=== PATIENT | male | born 1980 | race Caucasian/White ===

== ENCOUNTER 2017-08-28 12:44 | Emergency (ER) | payer SELFPAY ==
[2017-08-28 13:09] VITALS: BP 127/81
--- NOTE | 2017-08-28 13:18 | UC ---
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-hurts with certain movement relief with different positions - History of Current Complaint Chief Complaint: UCLowerExtremity Stated Complaint: LEFT LEG PAIN Time Seen by Provider: 08/28/17 13:15 Hx Obtained From: Patient Onset/Duration: Sudden Onset, Lasting Days - 6 Severity Initially: Mild Severity Currently: Mild Pain Intensity: 4 Pain Scale Used: 0-10 Numeric Aggravating Factor(s): Standing Alleviating Factor(s): Rest, Other - positions and stretching Able to Bear Weight: Yes - Allergies/Home Medications Allergies/Adverse Reactions: Allergies Allergy/AdvReac Type Severity Reaction Status Date / Time No Known Allergies Allergy Verified 08/28/17 13:04 PMH/Surg Hx/FS Hx/Imm Hx Previously Healthy: Yes - Surgical History Surgical History: Yes Surgery Procedure, Year, and Place: adenoidectomy, tonsils - Family History Known Family History: Positive: None, Other - Social History Occupation: Employed Full-time Lives: With Family Alcohol Use: None Substance Use Type: None Smoking Status (MU): Never Smoked Tobacco Household Exposure Type: Cigarettes - Immunization History Most Recent Influenza Vaccination: Not the 2016/2017 Season Review of Systems Constitutional: Negative Skin: Negative Eyes: Negative ENT: Negative Respiratory: Negative Cardiovascular: Negative Gastrointestinal: Negative Genitourinary: Negative Motor: Negative Neurovascular: Negative Musculoskeletal: Arthralgia - left upper leg, Myalgia - left upper leg Neurological: Negative Psychological: Negative Is Patient Immunocompromised?: No All Other Systems Reviewed And Are Negative: Yes Physical Exam Triage Information Reviewed: Yes Appearance: Well-Appearing, No Pain Distress, Well-Nourished Vital Signs: Initial Vital Signs Temp 98.5 F 08/28/17 12:57 Pulse 72 08/28/17 12:57 Resp 16 08/28/17 12:57 BP 127/81 08/28/17 12:57 Pulse Ox 100 08/28/17 12:57 Vital Signs Reviewed: Yes Eye Exam: Normal Eyes: Positive: Conjunctiva Clear ENT Exam: Normal ENT: Positive: Normal ENT inspection, Hearing grossly normal. Negative: Nasal congestion, Nasal drainage, Trismus, Muffled/hoarse voice Dental Exam: Normal Neck exam: Normal Neck: Positive: Supple, Nontender Respiratory Exam: Normal Respiratory: Positive: Chest non-tender, No respiratory distress, No accessory muscle use Cardiovascular Exam: Normal Cardiovascular: Positive: RRR, Pulses Normal, Brisk Capillary Refill Musculoskeletal Exam: Normal Musculoskeletal: Positive: Strength Intact, ROM Intact, No Edema Neurological Exam: Normal Neurological: Positive: Alert Psychological Exam: Normal Skin Exam: Normal Lower Extremity Course/Dx - Course Course Of Treatment: nsaids, heat muscle relaxor (refused time off from work), follow with pcp - Differential Dx/Diagnosis Differential Diagnosis/HQI/PQRI: Contusion, Fracture (Closed), Phlebitis, Puncture Wound, Sciatica, Sprain, Strain Provider Diagnoses: Left ham string strain Discharge - Discharge Plan Condition: Stable Disposition: HOME Prescriptions: Cyclobenzaprine TAB* [Flexeril 10 MG TAB*] 10 mg PO TID PRN #15 tab PRN Reason: muscle pain Naproxen [Naproxen 500 mg] 500 mg PO Q12H PRN #30 tab PRN Reason: leg pain Patient Education Materials: Acetaminophen (By mouth), Muscle Strain (ED), Core Strengthening Exercises (GEN) Referrals: [facility] [Provider Group] - [address] [facility] [Outside] - 5 Days
== END 2017-08-28 13:41 | disposition home or self-care (01) ==
LOC: UCCORT 12:44
DX: S76.812A Strain of other specified muscles, fascia and tendons at thigh level, left thigh, initial encounter (principal); X50.3XXA Overexertion from repetitive movements, initial encounter; Y93.9 Activity, unspecified; Y92.9 Unspecified place or not applicable; Y99.9 Unspecified external cause status
CPT/HCPCS: 99212; G0463

== ENCOUNTER 2018-02-21 13:03 | Emergency (ER) | payer SELFPAY ==
[2018-02-21] MEDS ORDERED: Ibuprofen TAB* 600 MG PO ONE (14:11)
[2018-02-21] MEDS ORDERED: Tetan/Diph/Pertus SYR(Tdap)* 0.5 ML SYR(BOOSTRIX) use SYR IM ONE (14:11)
[2018-02-21 14:16] VITALS: BP 143/94
--- NOTE | 2018-02-21 14:17 | UC ---
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 the bite did not tear his jeans. last tetanus is not known. occured [employer]OCK [employer]. denies any other injury. - History of Current Complaint Stated Complaint: LEFT LEG DOG BITE (WC) Time Seen by Provider: 02/21/18 14:03 Hx Obtained From: Patient Onset/Duration: Sudden Onset Type of Bite: Animal - dog Has Animal Been Immunized?: Unknown Character: Abrasion/Laceration Aggravating Factor(s): Nothing Alleviating Factor(s): Nothing Associated Signs And Symptoms: Positive: Swelling Hx of Bite: Unprovoked Animal Available for Observation: Yes - Risk Factors Infection/Sepsis Risk Factors: Negative - Allergies/Home Medications Allergies/Adverse Reactions: Allergies Allergy/AdvReac Type Severity Reaction Status Date / Time No Known Allergies Allergy Verified 02/21/18 14:12 Home Medications: Home Medications NK [No Home Medications Reported] 02/21/18 [History Confirmed 02/21/18] PMH/Surg Hx/FS Hx/Imm Hx Previously Healthy: Yes - Surgical History Surgical History: Yes Surgery Procedure, Year, and Place: adenoidectomy, tonsils - Family History Known Family History: Positive: None, Other - Social History Occupation: Employed Full-time Alcohol Use: None Substance Use Type: None Smoking Status (MU): Never Smoked Tobacco Household Exposure Type: Cigarettes - Immunization History Most Recent Influenza Vaccination: Not the 2016/2017 Season Review of Systems Constitutional: Negative Skin: Negative Eyes: Negative ENT: Negative Respiratory: Negative Cardiovascular: Negative Gastrointestinal: Negative Genitourinary: Negative Motor: Negative Neurovascular: Negative Musculoskeletal: Negative Neurological: Negative Psychological: Negative Is Patient Immunocompromised?: No All Other Systems Reviewed And Are Negative: Yes Physical Exam Triage Information Reviewed: Yes Appearance: Well-Appearing Vital Signs Reviewed: Yes Eye Exam: Normal ENT: Positive: Normal ENT inspection Neck: Positive: Supple, Nontender, No Lymphadenopathy Respiratory: Positive: Lungs clear, Normal breath sounds Cardiovascular: Positive: RRR, No Murmur Abdomen Description: Positive: Nontender, No Organomegaly, Soft Bowel Sounds: Positive: Present Musculoskeletal: Positive: ROM Intact, Other: - L calf has abrasion with mild swelling and bruising. s/v/m is intact. Over lying jeans are intact Neurological: Positive: Alert Psychological: Positive: Age Appropriate Behavior Skin Exam: Normal Bite Injury Course/Dx - Course Course Of Treatment: no direct contact between pt skin and animal mouth plus no pw - area is c/w abrasion from bite thus po antibiotic not indicated. will update tetanus. pt states filed animal bite papers at registration. bite from a family dog and rn documentation specialist is known. no hx htn and BP i think is related to this visit - Differential Dx/Diagnosis Provider Diagnoses: Dog bite L calf Discharge - Sign-Out/Discharge Documenting (check all that apply): Discharge - Discharge Plan Condition: Stable Disposition: HOME Patient Education Materials: Animal Bite (ED) Referrals: Radha Malhotra MD [Medical Doctor] - If Needed - Billing Disposition and Condition Condition: STABLE Disposition: HOME
== END 2018-02-21 14:55 | disposition home or self-care (01) ==
LOC: UCCORT 13:03
DX: S81.852A Open bite, left lower leg, initial encounter (principal); W54.0XXA Bitten by dog, initial encounter; Y93.89 Activity, other specified; Y92.410 Unspecified street and highway as the place of occurrence of the external cause; Y99.0 Civilian activity done for income or pay
CPT/HCPCS: 90471; 90715; 99212; A9270-GY; G0463

== ENCOUNTER 2019-06-26 14:32 | Emergency (ER) | payer OTHER ==
[2019-06-26 15:05] VITALS: BP 138/96
--- NOTE | 2019-06-26 15:46 | UC ---
Lower Extremity/Ankle HPI - HPI Summary HPI Summary: 39 year old male with no pMH present with right knee pain after fall on Wednesday. Patient fell onto gravel, ho [place], LOC/ Head trauma. Patient was ambulatory at scene, however increase pain since with difficulty walking this AM. Improved with Naproxen. + fever of 100 on naproxen currently. + warmth. - History of Current Complaint Chief Complaint: UCLowerExtremity Stated Complaint: L KNEE INJ Time Seen by Provider: 06/26/19 15:19 Hx Obtained From: Patient, Family/In Home Tutor - sister, friend Onset/Duration: Sudden Onset, Lasting Days Severity Initially: Moderate Severity Currently: Severe Pain Intensity: 10 Pain Scale Used: 0-10 Numeric Aggravating Factor(s): Standing, Ambulation Alleviating Factor(s): Rest Able to Bear Weight: Yes - painful - Allergies/Home Medications Allergies/Adverse Reactions: Allergies Allergy/AdvReac Type Severity Reaction Status Date / Time No Known Allergies Allergy Verified 06/26/19 15:05 PMH/Surg Hx/FS Hx/Imm Hx Previously Healthy: Yes - Surgical History Surgical History: Yes Surgery Procedure, Year, and Place: adenoidectomy, tonsils - Family History Known Family History: Positive: None, Other, Non-Contributory - Social History Alcohol Use: None Substance Use Type: None Smoking Status (MU): Never Smoked Tobacco Household Exposure Type: Cigarettes - Immunization History Most Recent Influenza Vaccination: Not the 2016/2017 Season Most Recent Tetanus Shot: Unknown Review of Systems All Other Systems Reviewed And Are Negative: Yes Constitutional: Positive: Fever, Chills Musculoskeletal: Positive: Arthralgia, Decreased ROM, Edema, Myalgia Neurological: Negative: Headache Is Patient Immunocompromised?: No Physical Exam Triage Information Reviewed: Yes Appearance: No Pain Distress, Well-Nourished, Ill-Appearing - minimal Vital Signs: Initial Vital Signs Temp 100.1 F 06/26/19 15:02 Pulse 90 06/26/19 15:02 Resp 16 06/26/19 15:02 BP 138/96 06/26/19 15:02 Pulse Ox 98 06/26/19 15:02 Vital Signs Reviewed: Yes Eyes: Positive: Conjunctiva Clear Musculoskeletal: Positive: Other: - rythema around lacrations laterally on left knee with light erythema extending to lower 1/2 of knee, + effusion, mild to moderate, with diffuse warmth. ROM 0-130 without difficulty, + ambulatory with limp, + painful per patient. neg homans, neg achillies, DF/PF = b/l. no pain with movement great toe passively. + TTP b/l joint lines. neg patella grind. Neurological Exam: Normal Neurological: Positive: Alert - SITLT distal to knee Psychological Exam: Normal Skin: Positive: Rashes - erythema around lacrations laterally on left knee with light erythema extending to lower 1/2 of knee, + effusion, mild to moderate, with diffuse warmth. ROM 0-130 without difficulty, + ambulatory with limp, + painful per patient. neg homans, neg achillies, DF/PF = b/l. no pain with movement great toe passively. + TTP b/l joint lines. neg patella grind. Lower Extremity Course/Dx - Course Course Of Treatment: Probable septic joint, sent to ER for further evaluation treatment. Offerred ambo, will be taken in friends car as patient did not want possible cost of ambo. - Differential Dx/Diagnosis Differential Diagnosis/HQI/PQRI: Cellulitis, Compartment Syndrome, Fracture ( Closed), Fracture (Open), Sprain, Strain, Tendonitis, Tenosynovitis Provider Diagnosis: Knee effusion, left Discharge - Sign-Out/Discharge Documenting (check all that apply): Patient Departure All imaging exams completed and their final reports reviewed: Yes - Discharge Plan Condition: Fair Disposition: HOME-RECOMMEND TO ED Patient Education Materials: Swollen Knee Joint (ED) Referrals: No Primary Care Phys,NOPCP [Primary Care Provider] - Additional Instructions: Potential for septic knee- Please go to ER for further evaluation and treatment - Billing Disposition and Condition Condition: FAIR Disposition: Home-Recommend to ED - Attestation Statements Provider Attestation: I was available for consult. This patient was seen by the DEWAYNE. The patient was not presented to, seen by, or examined by me. -Sb
== END 2019-06-26 15:45 | disposition home health service (06) ==
LOC: UCEAST 14:32
DX: M25.462 Effusion, left knee (principal)
CPT/HCPCS: 99212; G0463

== ENCOUNTER 2019-06-26 16:02 | Emergency (ER) | payer OTHER ==
[2019-06-26 17:05] LABS: ABS Eosinophils 0.3 10^3/ul (0-0.6); ABS Lymphocytes 1.6 10^3/ul (1.0-4.8); ABS Monocytes 0.5 10^3/ul (0-0.8); ABS Neutrophils 6.8 10^3/ul (1.5-7.7); Eosinophil % 3.4 %; Hematocrit 44 % (42-52); Hemoglobin 15.6 g/dL (14.0-18.0); Mean Corpuscular HGB Conc 36 g/dL (31-36); Mean Corpuscular Hemoglobin 30 pg (27-31); Mean Corpuscular Volume 86 fL (80-94); Mean Platelet Volume 8.2 fL (7.4-10.4); Platelet Count 204 10^3/uL (150-450); Red Blood Count 5.13 10^6 /uL (4.18-5.48); Red Cell Distribution Width 13 % (10-15); White Blood Count 9.2 10^3/uL (3.5-10.8)
[2019-06-26 17:27] LABS: Albumin 4.8 g/dL (3.2-5.2); Albumin/Globulin Ratio 1.5 (1-3); BUN/Creatinine Ratio 13.1 (8-20); C Reactive Protein 10.82 mg/L (<8.01); Calcium 9.8 mg/dL (8.6-10.3); EGFR African American 102.4 (>60); EGFR Non-African American 84.6 (>60); Globulin 3.1 g/dL (2-4); Potassium 3.9 mmol/L (3.5-5.0); Total Protein 7.9 g/dL (6.4-8.9)
--- NOTE | 2019-06-26 19:58 | ED ---
Lower Extremity - HPI Summary HPI Summary: This pt is a 39 Y/O M presenting to [facility] with a CC of a L knee injury sustained while falling on 06/23/19. He states that the pain is rated a 10/10 in severity while ambulating and feels slightly better while laying down. He stated that he fell on gravel and has had a work up for Sepsis from urgent care which was negative. He states that his knee is throbbing, swollen, and has erythema. He denies any fever, N/V/D, CP, cough, headaches, and chills. - History of Current Complaint Chief Complaint: EDExtremityLower Stated Complaint: LT KNEE PAIN PER PT Time Seen by Provider: 06/26/19 19:19 Hx Obtained From: Patient Mechanism Of Injury: Fall From A Standing Position Onset of Pain: Immediate Onset/Duration: Days - 3 Severity Initially: Moderate Severity Currently: Severe Pain Intensity: 10 Pain Scale Used: 0-10 Numeric Timing: Constant Location: Is Discrete @ - L knee Character Of Pain: Throbbing Associated Signs And Symptoms: Positive: Negative - N/V/D, CP, cough, headaches , and chills., Swelling, Redness, Knee Pain, Other - Scabs in his L knee. Negative: Fever Aggravating Factor(s): Standing, Ambulation Alleviating Factor(s): Rest - Allergies/Home Medications Allergies/Adverse Reactions: Allergies Allergy/AdvReac Type Severity Reaction Status Date / Time No Known Allergies Allergy Verified 06/26/19 15:05 PMH/Surg Hx/FS Hx/Imm Hx Previously Healthy: No Endocrine/Hematology History: Denies: Hx Diabetes, Hx Thyroid Disease Cardiovascular History: Denies: Hx Hypertension Respiratory History: Denies: Hx Asthma, Hx Chronic Obstructive Pulmonary Disease (COPD) GI History: Denies: Hx Ulcer - Surgical History Surgery Procedure, Year, and Place: adenoidectomy, tonsils Infectious Disease History: No Infectious Disease History: Denies: Hx Clostridium Difficile, Hx Hepatitis, Hx Human Immunodeficiency Virus (HIV), Hx of Known/Suspected MRSA, Hx Shingles, Hx Tuberculosis, Hx Known/ Suspected VRE, Hx Known/Suspected VRSA, History Other Infectious Disease, Traveled Outside the [place] in Last 30 Days - Family History Known Family History: Positive: None, Other, Non-Contributory - Social History Alcohol Use: None Substance Use Type: Reports: None Smoking Status (MU): Never Smoked Tobacco Review of Systems Negative: Fever, Chills Negative: Chest Pain Negative: Cough Negative: Abdominal Pain, Vomiting, Diarrhea, Nausea Positive: Myalgia - L knee pain Skin: Other - scabs over the L knee, erythema, swelling Negative: Headache All Other Systems Reviewed And Are Negative: Yes Physical Exam - Summary Physical Exam Summary: VITAL SIGNS: Reviewed. GENERAL: Patient is a well-developed and nourished male who is lying comfortable in the stretcher. Patient is not in any acute respiratory distress. HEAD AND FACE: No signs of trauma. No ecchymosis, hematomas or skull depressions. No sinus tenderness. EYES: PERRLA, EOMI x 2, No injected conjunctiva, no nystagmus. EARS: Hearing grossly intact. Ear canals and tympanic membranes are within normal limits. MOUTH: Oropharynx within normal limits. NECK: Supple, trachea is midline, no adenopathy, no JVD, no carotid bruit, no c- spine tenderness, neck with full ROM CHEST: Symmetric, no tenderness at palpation LUNGS: Clear to auscultation bilaterally. No wheezing or crackles. CVS: Regular rate and rhythm, S1 and S2 present, no murmurs or gallops appreciated. ABDOMEN: Soft, non-tender. No signs of distention. No rebound no guarding, and no masses palpated. Bowel sounds are normal. EXTREMITIES: Escher over the L knee with tenderness to palpation, mild swelling , but no erythema. NEURO: Alert and oriented x 3. No acute neurological deficits. Speech is normal and follows commands. SKIN: Dry and warm Triage Information Reviewed: Yes Vital Signs On Initial Exam: Initial Vitals Temp Pulse Resp BP Pulse Ox 100.2 F 91 16 133/90 96 06/26/19 16:03 06/26/19 16:03 06/26/19 16:03 06/26/19 16:03 06/26/19 16:03 Vital Signs Reviewed: Yes Diagnostics - Vital Signs Vital Signs Temp Pulse Resp BP Pulse Ox 06/26/19 19:43 98.0 F 06/26/19 16:03 100.2 F 91 16 133/90 96 - Laboratory Lab Results: Lab Results 06/26/19 06/26/19 06/26/19 Range/Units 16:54 16:54 16:54 WBC 9.2 (3.5-10.8) 10^3/uL RBC 5.13 (4.18-5.48) 10^6 /uL Hgb 15.6 (14.0-18.0) g/dL Hct 44 (42-52) % MCV 86 (80-94) fL MCH 30 (27-31) pg MCHC 36 (31-36) g/dL RDW 13 (10-15) % Plt Count 204 (150-450) 10^3/uL MPV 8.2 (7.4-10.4) fL Neut % (Auto) 73.4 % Lymph % (Auto) 17.0 % [place] % (Auto) 5.8 % Eos % (Auto) 3.4 % Baso % (Auto) 0.4 % Absolute Neuts (auto) 6.8 (1.5-7.7) 10^3/ul Absolute Lymphs (auto) 1.6 (1.0-4.8) 10^3/ul Absolute Monos (auto) 0.5 (0-0.8) 10^3/ul Absolute Eos (auto) 0.3 (0-0.6) 10^3/ul Absolute Basos (auto) 0.0 (0-0.2) 10^3/ul Absolute Nucleated RBC 0.0 10^3/ul Nucleated RBC % 0.0 Sodium 140 (135-145) mmol/L Potassium 3.9 (3.5-5.0) mmol/L Chloride 106 (101-111) mmol/L Carbon Dioxide 26 (22-32) mmol/L Anion Gap 8 (2-11) mmol/L BUN 13 (6-24) mg/dL Creatinine 0.99 (0.67-1.17) mg/dL Est GFR ( Amer) 102.4 (>60) Est GFR (Non-Af Amer) 84.6 (>60) BUN/Creatinine Ratio 13.1 (8-20) Glucose 88 (70-100) mg/dL Lactic Acid 1.0 (0.5-2.0) mmol/L Calcium 9.8 (8.6-10.3) mg/dL Total Bilirubin 1.00 (0.2-1.0) mg/dL AST 22 (13-39) U/L ALT 25 (7-52) U/L Alkaline Phosphatase 52 (34-104) U/L C-Reactive Protein 10.82 H (<8.01) mg/L Total Protein 7.9 (6.4-8.9) g/dL Albumin 4.8 (3.2-5.2) g/dL Globulin 3.1 (2-4) g/dL Albumin/Globulin Ratio 1.5 (1-3) Result Diagrams: 06/26/19 16:54 06/26/19 16:54 Lab Statement: Any lab studies that have been ordered have been reviewed, and results considered in the medical decision making process. - Radiology Knee X-Ray Radiology Interpretation Completed By: Radiologist Summary of Radiographic Findings: No evidence for osseous injury. ED physician has reivewed this report. - CT Left Knee CT CT Interpretation Completed By: Radiologist Summary of CT Findings: No acute fractures. Tiny effusion and prepatellar soft tissue swelling. ED Phsycian has reviewed this report. - Ultrasound Ivanna dopple study Ultrasound Interpretation Completed By: Radiologist Summary of Ultrasound Findings: No signs of a DVT. ED physician has reviewed this report. Lower Extremity Course/Dx - Course Course Of Treatment: his pt is a 39 Y/O M presenting to [facility] with a CC of a L knee injury sustained while falling on 06/23/19. He states that the pain is rated a 10/10 in severity while ambulating and feels slightly better while laying down. His PE found that he had Escher over the L knee with tenderness to palpation, mild swelling, but no erythema. His Knee X-Ray showed No evidence for osseous injury. His L knee CT found that he has the following: No acute fractures. Tiny effusion and prepatellar soft tissue swelling. His Venous dopple study found no evidence for a DVT. He will be discharged home with a Dx of cellulitis in his LLE and be given ABX and instructed to follow up with the orthopedic unit tommorrow by contacting Dr. Long. The pt does not report any Hx of a fever. - Diagnoses Provider Diagnoses: Cellulitis of left leg Discharge - Sign-Out/Discharge Documenting (check all that apply): Patient Departure - discharge Patient Received Moderate/Deep Sedation with Procedure: No - Discharge Plan Condition: Stable Disposition: HOME Patient Education Materials: Cellulitis (ED) [facility]errals: [facility] [Outside] - 3 Days Jerry Long MD [Medical Doctor] - 1 Day Additional Instructions: Please follow up with Dr. Long, Orthopedics, tomorrow for further consultation. Return to the emergency department fpor any new or worsening symptoms and follow up with the [facility] within 3 days. Take the ABX above as directed. - Attestation Statements Document Initiated by Scribe: Yes Documenting Scribe: Fede Howell Provider For Whom Scribe is Documenting (Include Credential): Martha Eckert MD Scribe Attestation: IFede, scribed for Martha Eckert MD on 06/26/19 at 9800. Status of Scribe Document: Ready
[2019-06-26] MEDS ORDERED: Clindamycin CAP* 150 MG PO ONE (21:49)
[2019-06-26] MEDS ORDERED: Ibuprofen TAB* 400 MG PO ONE (21:49)
[2019-06-26 22:02] VITALS: BP 141/88
== END 2019-06-26 22:01 | disposition home or self-care (01) ==
LOC: ED 16:02
DX: L03.116 Cellulitis of left lower limb (principal)
CPT/HCPCS: 36415; 80053; 83605; 85025; 86140; 87040; 99283; A9270-GY

== ENCOUNTER 2020-02-25 09:55 | Emergency (ER) | payer MEDICAID ==
--- NOTE | 2020-02-25 09:59 | UC ---
Lower Extremity/Ankle HPI - HPI Summary HPI Summary: Woke up yesterday morning w/ L foot swelling and redness. feels like it is 10/ 10 martin. walking on it makes it worse, nothing makes it better. did not fall or injure himself at all. - History of Current Complaint Chief Complaint: UCLowerExtremity Stated Complaint: LEFT FOOT SWELLING/PAIN Time Seen by Provider: 02/25/20 09:59 - Allergies/Home Medications Allergies/Adverse Reactions: Allergies Allergy/AdvReac Type Severity Reaction Status Date / Time No Known Allergies Allergy Verified 02/25/20 10:11 Home Medications: Home Medications Cephalexin CAP* [Keflex CAP*] 500 mg PO TID 7 Days #21 cap 02/25/20 [Rx] PMH/Surg Hx/FS Hx/Imm Hx - Additional Past Medical History Additional PMH: gout hx Previously Healthy: Yes - Surgical History Surgical History: Yes Surgery Procedure, Year, and Place: adenoidectomy, tonsils - Family History Known Family History: Positive: None, Other, Non-Contributory - Social History Alcohol Use: None Substance Use Type: None Smoking Status (MU): Never Smoked Tobacco Household Exposure Type: Cigarettes - Immunization History Most Recent Influenza Vaccination: Not the 2017/2017 Season Most Recent Tetanus Shot: Unknown Review of Systems All Other Systems Reviewed And Are Negative: Yes Constitutional: Negative: Fever, Chills Skin: Positive: Other - redness at L foot. Negative: Rash, Bruising Musculoskeletal: Positive: Arthralgia - l foot, Edema. Negative: Decreased ROM Neurological/Mental Status: Negative: Weakness Physical Exam Triage Information Reviewed: Yes Appearance: Well-Appearing Vital Signs Reviewed: Yes Cardiovascular: Positive: Pulses Normal - L pedal Musculoskeletal: Positive: ROM Intact - AT L ANKLE AND TOES, Edema @ - dorsal forefoot Neurological: Positive: Alert Skin: Negative: Other - no bruising but +REDNESS AT L FOREFOOT,,MILD TENDERNESS. Lower Extremity Course/Dx - Course Course Of Treatment: L forefoot swelling and pain w/ no mechanism of injury. Likely cellulitis and will tx w/ antibx. He does have hx of gout but not presenting in typical manner if it is. afebrile and good pulses on exam. he may return if worsening. - Differential Dx/Diagnosis Differential Diagnosis/HQI/PQRI: Cellulitis, Gout, Other Provider Diagnosis: Cellulitis Discharge ED - Sign-Out/Discharge Documenting (check all that apply): Patient Departure All imaging exams completed and their final reports reviewed: No Studies - Discharge Plan Condition: Good Disposition: HOME Prescriptions: Cephalexin CAP* [Keflex CAP*] 500 mg PO TID 7 Days #21 cap Patient Education Materials: Cellulitis (ED) Referrals: No Primary Care Phys,NOPCP [Primary Care Provider] - Additional Instructions: if worsening will see his primary care - Billing Disposition and Condition Condition: GOOD Disposition: Home
[2020-02-25 10:12] VITALS: BP 140/91
== END 2020-02-25 10:25 | disposition home or self-care (01) ==
LOC: UCCORT 09:55
DX: L03.116 Cellulitis of left lower limb (principal)
CPT/HCPCS: 99212; G0463